=== PATIENT | female | born 1995 | race African-American/Black ===

== ENCOUNTER 2018-03-24 09:10 | Emergency (ER) | payer OTHER ==
[2018-03-24 11:00] LABS: APPEARANCE, URINE HAZY (CLEAR); BACTERIA, URINE AUTO 1+ (NEGATIVE); BILIRUBIN, URINE AUTO NEGATIVE (NEGATIVE); BLOOD, URINE BLOOD NEGATIVE (NEGATIVE); COLOR, URINE YELLOW (YELLOW); GLUCOSE, URINE (UA) AUTO NEGATIVE (NEGATIVE); KETONE, URINE AUTO NEGATIVE (NEGATIVE); LEUKOCYTE ESTERASE, URINE AUTO NEGATIVE (NEGATIVE); MUCUS, URINE SMALL (NEGATIVE); NITRITE, URINE AUTO NEGATIVE (NEGATIVE); PROTEIN, URINE AUTO NEGATIVE (NEGATIVE); RBC, URINE AUTO 2 /HPF (0-3); SPECIFIC GRAVITY URINE AUTO 1.032 (1.002-1.035); SQUAMOUS EPITHELIAL CELL UR AU 3 /HPF (0-6); UROBILINOGEN, URINE AUTO 0.2 mg/dL (0.0-2.0); WBC, URINE AUTO 1 /HPF (0-3)
== END 2018-03-24 11:32 | disposition home or self-care (01) ==
LOC: M ED 09:10
DX: R10.9 Unspecified abdominal pain (principal); Y04.8XXA Assault by other bodily force, initial encounter; Y92.89 Other specified places as the place of occurrence of the external cause; Z88.0 Allergy status to penicillin
CPT/HCPCS: 76705

== ENCOUNTER 2018-05-23 18:34 | Emergency (ER) | payer OTHER | END 2018-05-23 19:44 | disposition home or self-care (01) | LOC: M ED 18:34 | DX: S90.222A Contusion of left lesser toe(s) with damage to nail, initial encounter (principal); W22.8XXA Striking against or struck by other objects, initial encounter; Y92.018 Other place in single-family (private) house as the place of occurrence of the external cause; Z88.0 Allergy status to penicillin | CPT/HCPCS: 73660 ==

== ENCOUNTER 2018-11-23 14:57 | Emergency (ER) | payer OTHER ==
[~2018-11-23] VITALS: Ht 160 cm; Wt 84.5 kg
[~2018-11-23 14:57] MED LIST: IBUP-1022 PO; ZOFR4TAB14 PO
[2018-11-23 16:08] LABS: BASO % 0.3 % (0.0-1.0); EOS # 0.1 10^3/uL (0.0-0.50); EOS % 1.8 % (0.0-3.0); HEMATOCRIT 32.7 % (36.0-47.0); HEMOGLOBIN 10.7 g/dl (12.0-15.5); LYMPH % 25.7 % (24.0-44.0); MEAN CORPUSCULAR HEMOGLOBIN 28.8 pg (27.0-33.0); MEAN CORPUSCULAR HGB CONC 32.7 g/dl (32.0-36.5); MEAN CORPUSCULAR VOLUME 88.1 fl (80.0-96.0); MONO # 0.7 10^3/uL (0.0-0.8); MONO % 8.7 % (0.0-5.0); NEUTROPHILS % 63.2 % (36.0-66.0); PLATELET COUNT, AUTOMATED 346 10^3/uL (150-450); RED BLOOD COUNT 3.71 10^6/uL (4.00-5.40); WHITE BLOOD COUNT 7.9 10^3/uL (4.0-10.0)
--- NOTE | 2018-11-23 17:58 | REP ---
Emergency first trimester obstetric sonography: History: Vaginal bleeding. Sonographic findings: Transabdominal scanning confirms the presence of a viable single intrauterine gestation. The embryonic pole measures 14 mm in crown-rump length. This corresponds with a gestational age estimate of 7 weeks 2 days. heart rate is recorded at 143 beats per minute. A subchorionic fluid collection consistent with hemorrhage is seen. This measures 1.2 x 0.7 x 1.4 cm. A small corpus luteum is seen in the maternal left ovary, 1.8 cm in greatest diameter. There is a trace amount of fluid within the cul-de-sac. Impression: 1. Viable single intrauterine gestation at 7 weeks 5 days by crown-rump length. HOLGER by sonography July 07, 2019. 2. 1.4 cm subchorionic hemorrhage seen. Electronically Signed by Christopher Pastrana MD 11/24/2018 10:29 A
[2018-11-23 19:20] LABS: CHLAMYDIA DNA AMPLIFICATION NEGATIVE (NEGATIVE); GC DNA AMPLIFICATION NEGATIVE (NEGATIVE)
[2018-11-23 19:33] VITALS: BP 110/68
== END 2018-11-23 19:33 | disposition home or self-care (01) ==
LOC: M ED 14:57
DX: O20.0 Threatened abortion (principal); O99.89 Other specified diseases and conditions complicating pregnancy, childbirth and the puerperium; R30.0 Dysuria; O36.8911 Maternal care for other specified fetal problems, first trimester, fetus 1; Z88.0 Allergy status to penicillin; Z3A.01 Less than 8 weeks gestation of pregnancy

== ENCOUNTER 2018-12-25 20:53 | Emergency (ER) | payer OTHER ==
[~2018-12-25] VITALS: Ht 160 cm; Wt 83.6 kg
[2018-12-25 21:53] LABS: BASO % 0.3 % (0.0-1.0); EOS # 0.1 10^3/uL (0.0-0.50); HEMATOCRIT 30.9 % (36.0-47.0); HEMOGLOBIN 10.3 g/dl (12.0-15.5); LYMPH # 1.9 10^3/uL (1.5-6.5); LYMPH % 26.2 % (24.0-44.0); MEAN CORPUSCULAR HEMOGLOBIN 30.2 pg (27.0-33.0); MEAN CORPUSCULAR HGB CONC 33.3 g/dl (32.0-36.5); MEAN CORPUSCULAR VOLUME 90.6 fl (80.0-96.0); MONO # 0.6 10^3/uL (0.0-0.8); NEUTROPHILS # 4.4 10^3/uL (1.8-7.7); NEUTROPHILS % 62.4 % (36.0-66.0); PLATELET COUNT, AUTOMATED 334 10^3/uL (150-450); RED BLOOD COUNT 3.41 10^6/uL (4.00-5.40); WHITE BLOOD COUNT 7.1 10^3/uL (4.0-10.0)
[2018-12-25 22:45] LABS: ALBUMIN 3.3 GM/DL (3.2-5.2); ALT/SGPT 21 U/L (12-78); BILIRUBIN,DIRECT < 0.1 MG/DL (0.0-0.2); BILIRUBIN,TOTAL 0.3 MG/DL (0.2-1.0); BLOOD UREA NITROGEN 11 MG/DL (7-18); CALCIUM LEVEL 8.7 MG/DL (8.5-10.1); CARBON DIOXIDE LEVEL 22 MEQ/L (21-32); CHLORIDE LEVEL 108 MEQ/L (98-107); CREATININE FOR GFR 0.51 MG/DL (0.55-1.30); GLOMERULAR FILTRATION RATE > 60.0 (>60); GLUCOSE, FASTING 97 MG/DL (70-100); HCG, SERUM QUANTITATIVE 38438 MIU/ML; LIPASE 95 U/L (73-393); POTASSIUM SERUM 5.2 MEQ/L (3.5-5.1); SODIUM LEVEL 139 MEQ/L (136-145); TOTAL PROTEIN 7.1 GM/DL (6.4-8.2)
--- NOTE | 2018-12-25 22:59 | REPVR ---
EXAM: US First Trimester, Transabdominal EXAM DATE/TIME: 12/25/2018 10:13 PM CLINICAL HISTORY: 23 years old, female; complicated by abdominal or pelvic pain; Generalized abdominal pain; First trimester; Gestational age or lmp: 12 weeks 3 days; TECHNIQUE: Imaging protocol: Real-time transabdominal obstetrical ultrasound of the maternal pelvis and a first trimester , less than 14 weeks 0 days, with image documentation. COMPARISON: US PELVIC NON-OB COMPLETE 02/26/2018 10:28 AM FINDINGS: Other findings: Early placentation forming anteriorly. GESTATION: Gestation: Single gestational sac in the uterus. Single fetus within the gestational sac. Heart rate: heart rates is 144 beats per minute. Placenta: Unremarkable. No subchorionic bleed. Amniotic fluid: Amniotic and chorionic fluid are normal for gestational age. BIOMETRY: Estimated gestational age: Gestational age based on crown-rump length is 12 weeks 3 days. Gestational age based on LMP is 12 weeks 6 days. [place]-Rump length: [place] rump length of the fetus measures 5.95 cm. Estimated due date: HOLGER using ultrasound is and using LMP is 07/03/2019 MATERNAL: Uterus: Unremarkable. Cervix: Unremarkable. Right adnexa: Unremarkable. Left adnexa: Corpus luteal cyst within the left ovary measures 2.6 x 1.9 x 1.9 cm. Intraperitoneal: No intraperitoneal free fluid. IMPRESSION: Unremarkable first trimester gestation at 12 weeks 3 days using crown-rump length. Detailed anatomic survey performed at 19-20 weeks if clinically desired. Electronically signed by: Naresh Moreira On 12/25/2018 22:58:54 PM
[2018-12-25 23:01] VITALS: BP 119/72
== END 2018-12-25 23:02 | disposition home or self-care (01) ==
LOC: M ED 20:53
DX: O20.0 Threatened abortion (principal); Z3A.12 12 weeks gestation of pregnancy

== ENCOUNTER 2019-03-23 14:46 | Outpatient (CLI) | payer OTHER ==
[~2019-03-23] VITALS: Ht 160 cm; Wt 87.5 kg
[2019-03-23 15:03] VITALS: BP 120/59
[2019-03-23] MEDS ORDERED: PRENTAB9 PO (15:07)
--- NOTE | 2019-03-23 17:21 | HPE ---
DATE OF ADMISSION: 03/23/2019 23-year-old 2, para 1, last menstrual period (LMP) 09/26/2018, estimated date of delivery (EDC) 07/03/2019 at 25 weeks. Said she had some vaginal bleeding and spotting, but presently has stopped. There is nothing there. No cramps. No discharge. No pain. PAST HISTORY In 2018 at 39 weeks spontaneous vaginal delivery induction of labor for IUGR male 6 pounds 7 ounces. Risk factors BMI is 33 and she has short interval . LABS: Labs are O+, HIV negative, hep negative, RPR negative, rubella immune. Varicella immune. Pap normal. Urine had mixed reva. Gonorrhea and chlamydia are negative. PHYSICAL EXAMINATION: No distress. Symphysis fundus height is 30, vertex. heart category one strip. Sterile speculum examination: Cervix is closed, anterior, clean, pink vaginal torres. No discharge. No blood. Reactive NST. Blood pressure is 120 on 59, respirations are 18 and pulse is 92. Temperature is 97.1. PLAN: Precautions. Followup with her appointment on April 10. No evidence of vaginal bleeding or discharge. No contractions. The patient was discharged undelivered.
== END 2019-03-23 16:00 | disposition home or self-care (01) ==
LOC: M LDO 14:46
PROVIDERS: ATTEND Obstetrics & Gynecology
DX: O26.852 Spotting complicating pregnancy, second trimester (principal); Z3A.25 25 weeks gestation of pregnancy
CPT/HCPCS: G0378; G0463

== ENCOUNTER 2019-11-26 08:30 | Emergency (ER) | payer OTHER ==
[~2019-11-26] VITALS: Ht 160 cm; Wt 88.3 kg
[~2019-11-26 08:30] MED LIST changes: +PRENTAB9 PO
[2019-11-26] MEDS ORDERED: ACETAMINOPHEN TAB 650MG DOSE (2X325MG) PO ONE (09:00)
[2019-11-26 09:34] LABS: BASO % 0.3 % (0.0-1.0); EOS # 0.1 10^3/uL (0.0-0.5); HEMATOCRIT 31.6 % (36.0-47.0); HEMOGLOBIN 10.8 g/dl (12.0-15.5); LYMPH # 1.4 10^3/uL (1.5-5.0); LYMPH % 20.6 % (24.0-44.0); MEAN CORPUSCULAR HGB CONC 34.2 g/dl (32.0-36.5); MEAN CORPUSCULAR VOLUME 90.8 fl (80.0-96.0); MONO # 0.4 10^3/uL (0.0-0.8); MONO % 6.4 % (0.0-5.0); NEUTROPHILS # 4.8 10^3/uL (1.5-8.5); NEUTROPHILS % 71.4 % (36.0-66.0); PLATELET COUNT, AUTOMATED 290 10^3/uL (150-450); RED BLOOD COUNT 3.48 10^6/uL (4.00-5.40); WHITE BLOOD COUNT 6.8 10^3/uL (4.0-10.0)
[2019-11-26 09:54] LABS: ALBUMIN 3.1 GM/DL (3.2-5.2); ALT/SGPT 23 U/L (12-78); BILIRUBIN,DIRECT < 0.1 MG/DL (0.0-0.2); BILIRUBIN,TOTAL 0.5 MG/DL (0.2-1.0); BLOOD UREA NITROGEN 9 MG/DL (7-18); CARBON DIOXIDE LEVEL 21 MEQ/L (21-32); CHLORIDE LEVEL 110 MEQ/L (98-107); CREATININE FOR GFR 0.51 MG/DL (0.55-1.30); GLOMERULAR FILTRATION RATE > 60.0 (>60); GLUCOSE, FASTING 92 MG/DL (70-100); LIPASE 70 U/L (73-393); POTASSIUM SERUM 3.9 MEQ/L (3.5-5.1); SODIUM LEVEL 139 MEQ/L (136-145); TOTAL PROTEIN 6.6 GM/DL (6.4-8.2)
--- NOTE | 2019-11-26 10:46 | REP ---
ULTRASOUND ABDOMEN: Real-time sonographic evaluation of the abdomen performed. Gallbladder demonstrates no evidence of intraluminal sludge or calculi, wall thickening or pericholecystic fluid. There is no intrahepatic or extrahepatic biliary dilatation, common bile duct measuring 6 mm. Liver and pancreas demonstrate no mass or other abnormality. Spleen is normal in size with no intrinsic abnormality measuring 10.9 cm in length. Kidneys are normal in size and echotexture with no mass or hydronephrosis. Right kidney measures 11.6 x 6.1 x 4.2 cm and left kidney 10.9 x 5.3 x 5.4 cm. Visualized abdominal aorta is normal in caliber, distal aspect is not well seen due to overlying bowel gas. Proximally it measures 2.2 cm in AP dimension. No free fluid is seen. IMPRESSION: Negative abdominal ultrasound. Electronically Signed by Ceasar Del Real MD 11/26/2019 11:28 A
--- NOTE | 2019-11-26 10:48 | REP ---
FIRST TRIMESTER ULTRASOUND: Real-time sonographic evaluation of the gravid uterus is performed. There is a single living intrauterine gestation. The estimated gestational age is 13. Weeks 5 days based on a crown/rump length of 76 mm. EDC 05/28/2020. heart rate 143 beats per minute. There is no subchorionic hemorrhage. Paraovarian complex cystic structure on the right measures 1.6 x 1.3 x 1.0 cm. There is no evidence of ovarian torsion with duplex Doppler evaluation. Electronically Signed by Ceasar Del Real MD 11/26/2019 11:29 A
[2019-11-26 13:30] VITALS: BP 128/69
== END 2019-11-26 13:35 | disposition home or self-care (01) ==
LOC: M ED 08:30
DX: O9A.211 Injury, poisoning and certain other consequences of external causes complicating pregnancy, first trimester (principal); S30.1XXA Contusion of abdominal wall, initial encounter; S39.012A Strain of muscle, fascia and tendon of lower back, initial encounter; S09.90XA Unspecified injury of head, initial encounter; W10.8XXA Fall (on) (from) other stairs and steps, initial encounter; Y92.018 Other place in single-family (private) house as the place of occurrence of the external cause; O99.011 Anemia complicating pregnancy, first trimester; Z3A.13 13 weeks gestation of pregnancy; Z88.0 Allergy status to penicillin; Z79.899 Other long term (current) drug therapy

== ENCOUNTER 2021-01-26 09:21 | Emergency (ER) | payer OTHER ==
[~2021-01-26] VITALS: Ht 160 cm; Wt 85.4 kg
--- NOTE | 2021-01-26 10:05 | REP ---
INDICATION: pain COMPARISON: None. TECHNIQUE: Four views right foot. FINDINGS: There is no evidence of acute fracture, dislocation, or intrinsic bone disease.The joint spaces are unremarkable in appearance. IMPRESSION: Negative right foot series. <Electronically signed by Ceasar Del Real > 01/26/21 [id number]
[2021-01-26 11:32] VITALS: BP 129/75
== END 2021-01-26 11:37 | disposition home or self-care (01) ==
LOC: M ED 09:21
DX: M72.2 Plantar fascial fibromatosis (principal); Z88.0 Allergy status to penicillin

== ENCOUNTER 2021-02-18 20:40 | Emergency (ER) | payer OTHER ==
[~2021-02-18] VITALS: Ht 160 cm; Wt 84.1 kg
[2021-02-18] MEDS ORDERED: IBUPROFEN 600MG TAB PO ONE (23:40)
[2021-02-18 23:57] VITALS: BP 121/65
== END 2021-02-18 23:57 | disposition home or self-care (01) ==
LOC: M ED 20:40
DX: S93.401A Sprain of unspecified ligament of right ankle, initial encounter (principal); X50.0XXA Overexertion from strenuous movement or load, initial encounter; Y92.019 Unspecified place in single-family (private) house as the place of occurrence of the external cause; Y93.9 Activity, unspecified; Y99.9 Unspecified external cause status; D64.9 Anemia, unspecified; Z88.0 Allergy status to penicillin

== ENCOUNTER 2021-04-05 09:13 | Emergency (ER) | payer OTHER ==
[~2021-04-05] VITALS: Ht 160 cm; Wt 88.9 kg
[2021-04-05 11:57] LABS: BASO % 0.4 % (0.0-1.0); EOS # 0.1 10^3/uL (0.0-0.5); EOS % 0.9 % (0.0-3.0); HEMATOCRIT 32.8 % (36.0-47.0); HEMOGLOBIN 10.4 g/dl (12.0-15.5); LYMPH # 1.6 10^3/uL (1.5-5.0); LYMPH % 18.4 % (24.0-44.0); MEAN CORPUSCULAR HEMOGLOBIN 27.6 pg (27.0-33.0); MEAN CORPUSCULAR HGB CONC 31.7 g/dl (32.0-36.5); MONO # 0.6 10^3/uL (0.0-0.8); MONO % 6.5 % (2.0-8.0); NEUTROPHILS # 6.2 10^3/uL (1.5-8.5); NEUTROPHILS % 73.3 % (36.0-66.0); PLATELET COUNT, AUTOMATED 365 10^3/uL (150-450); RED BLOOD COUNT 3.77 10^6/uL (4.00-5.40); WHITE BLOOD COUNT 8.5 10^3/uL (4.0-10.0)
[2021-04-05 12:21] LABS: ALBUMIN 3.3 GM/DL (3.2-5.2); ALT/SGPT 21 U/L (12-78); BILIRUBIN,DIRECT < 0.1 MG/DL (0.0-0.2); BILIRUBIN,TOTAL 0.3 MG/DL (0.2-1.0); LIPASE 87 U/L (73-393); TOTAL PROTEIN 7.1 GM/DL (6.4-8.2)
[2021-04-05 12:22] LABS: HCG, SERUM QUANTITATIVE 93603 MIU/ML
--- NOTE | 2021-04-05 13:17 | REP ---
INDICATION: bleeding/right groin pain. COMPARISON: None. TECHNIQUE: Transvesical imaging only FINDINGS: Within the uterus there is an anechoic structure with increased echoes surrounding it consistent with a decidual reaction. Within the gestational sac there is echogenic material consistent with a pole the mean crown-rump length measurement of which is consistent with an 8 week 5 day gestational age. Based on that the estimated date of delivery is 11/10/2021. Doppler interrogation of the pole shows a heart rate of 157 beats per minute. A well-defined anechoic structures seen within the gestational sac consistent with a yolk sac. There is no evidence of a chorionic or subchorionic abnormality. IMPRESSION: Early OB ultrasound as described above. <Electronically signed by Waylon Alarcon > 04/05/21 [id number]
[2021-04-05 14:16] VITALS: BP 129/78
== END 2021-04-05 14:18 | disposition home or self-care (01) ==
LOC: M ED 09:13
DX: O26.859 Spotting complicating pregnancy, unspecified trimester (principal); Z88.0 Allergy status to penicillin; Z3A.08 8 weeks gestation of pregnancy